=== PATIENT | female | born 2005 | race Caucasian/White ===

== ENCOUNTER 2024-03-02 11:22 | Emergency (ER) | payer OTHER ==
[~2024-03-02] VITALS: Ht 149.9 cm; Wt 54.4 kg
[2024-03-02 11:30] VITALS: BP 155/93; PULSE 70; RESP 23; TEMP 98.4; O2SAT 100
[2024-03-02] MEDS: IBUPROFEN 400 MG TAB PO ONE (12:34)
[2024-03-02 13:44] VITALS: BP 119/75; PULSE 79; RESP 15; TEMP 98.6; O2SAT 99
== END 2024-03-02 13:44 | disposition home or self-care (01) ==
LOC: MED 11:22
DX: S20.212A Contusion of left front wall of thorax, initial encounter (principal); W20.8XXA Other cause of strike by thrown, projected or falling object, initial encounter; Y93.89 Activity, other specified; Y92.89 Other specified places as the place of occurrence of the external cause; Y99.8 Other external cause status
CPT/HCPCS: 71101; 81025; 93005; 99283

== ENCOUNTER 2024-03-13 16:50 | Emergency (ER) | payer OTHER ==
[~2024-03-13] VITALS: Ht 149.9 cm; Wt 54.9 kg
[2024-03-13 16:51] VITALS: BP 149/84; PULSE 114; RESP 16; TEMP 98.1; O2SAT 98
[2024-03-13] MEDS: LORazepam 1 MG TAB PO ONE (19:12)
[2024-03-13 19:29] LABS: APPEARANCE,URINE CLEAR (CLEAR); BILIRUBIN,URINE NEGATIVE (NEGATIVE); BLOOD, URINE 3+ (NEGATIVE); COLOR,URINE YELLOW (YELLOW); LEUKOCYTE ESTERASE ,URINE NEGATIVE (NEGATIVE); NITRITE, URINE NEGATIVE (NEGATIVE); PH,URINE 7.5 (5.0-9.0); PROTEIN,URINE NEGATIVE (NEGATIVE); UGLUCOSE NEGATIVE (NEGATIVE); UROBILINOGEN,URINE 0.2 EU/dL (0.2 - 1)
[2024-03-13 19:38] LABS: BACTERIA,URINE FEW /HPF (None Seen); SQUAMOUS EPITHELIAL CELL,UR 0-3 (FEW) /LPF (0-3 (FEW)); WBC,URINE 0-5 /HPF (0-5)
[2024-03-13 19:41] LABS: AMPHETAMINE, URINE NEGATIVE ng/ml (NEG <=1000); BARBITURATE, URINE NEGATIVE ng/ml (NEG <=200); BENZODIAZEPINE, URINE NEGATIVE ng/mL (NEG <=200); CANNABINOID, URINE POSITIVE ng/mL (NEG <=50); COCAINE, URINE NEGATIVE ng/mL (NEG <=300); OPIATE, URINE NEGATIVE ng/mL (NEG <=2000); PHENCYCLIDINE SCREEN,URINE NEGATIVE ng/mL (NEG <=25)
[2024-03-13] MEDS ORDERED: IBUP-1842 PO (20:57)
[2024-03-13] MEDS ORDERED: ATA25 PO (20:57)
== END 2024-03-13 21:03 | disposition home or self-care (01) ==
LOC: MED 16:50
DX: R00.2 Palpitations (principal); R07.89 Other chest pain; R06.02 Shortness of breath; Z79.899 Other long term (current) drug therapy
CPT/HCPCS: 71045; 80305; 81001; 81025; 93005; 99285